=== PATIENT | male | born 1950 | race Caucasian/White ===

== ENCOUNTER 2018-05-31 20:08 | Observation (INO) | payer MEDICARE, OTHER ==
[~2018-05-31] VITALS: Ht 177.8 cm; Wt 83.9 kg
--- NOTE | ~2018-05-31 | HEMODYNAMI ---
PATIENT:ELVIA CHERRY MEDICAL RECORD: [id number] : 46 [id number] ADMISSION DATE: 05/31/18 Generatedon:06/01/201815:14 Patient name: ELVIA CHERRY Patient #: [id number] SSN: : 1950 Date of study: 06/01/2018 Page: Of Hemodynamic Procedure Report Patient Data Patient Demographics Procedure consent was obtained First Name: ELVIA Gender: Male Last Name: DILIP : 1950 Middle Initial: MARY KAY Age: 68 year(s) Patient #: [id number] Race: Unknown Additional ID: [id number] Contact details [address]: [address] [place] [address] [place] State: [place] City: [place] Zip code: [address] Past Medical History Allergies: No known allergies Admission Admission Data Admission Date: 05/31/2018 Admission Time: 23:13 Admit Source: Other Room #: D.2119 Weight (lbs.): 185.19 Weight (kg.): 84 Procedure Procedure Types Cath Procedure Diagnostic Procedure [facility] w/Coronaries Procedure Description Procedure Date Procedure Date: 06/01/2018 Procedure Start Time: 14:57 Procedure End Time: 15:09 Procedure Staff Name Function Yosef Boss MD Performing Physician Naina Hines RT Monitor Corey Sommers RT Scrub Naveen Montero RN Nurse Justino Gee RT Gas Attendant Procedure Data Cath Procedure Fluoroscopy Diagnostic fluoroscopy Total fluoroscopy Time: 1.8 time: 1.8 min min Diagnostic fluoroscopy Total fluoroscopy dose: 598 dose: 598 mGy mGy Contrast Material Contrast Material Type Amount (ml) Isovue 300 70 Entry Location Entry Primary Successful Side Size Upsize Upsize Entry Closure Succes sful Closure Location (Fr) 1 (Fr) 2 (Fr) Remarks Device Remarks Femoral Right 5 Fr artery Estimated blood loss: 5 ml Diagnostic catheters Device Type Used For End Catheter Placement MULTIPACK JL 4.0 5Fr Left Coronary catheter Angiography MULTIPACK 3DRC 5Fr Right Coronary catheter Angiography MULTIPACK Pigtail 5 Fr LV Angiography catheter Procedure Complications No complications Procedure Medications Medication Administration Route Dosage 0.9% NaCl I.V. 100 ml/hr Oxygen etCO2 Nasal cannula 2 l/min Heparin Flush Bag added to field 2 bags (1000units/500ml NS) Lidocaine 2% added to field 20 Versed I.V. 1 mg Fentanyl I.V. 50 mcg Hemodynamics Rest Heart Rate: 58 (bpm) Pressure Samples Time Site Value (mmHg) Purpose Heart Use Rate(bpm) 15:04 LV 168/-17,19 Snapshot 74 15:05 AO 154/69(107) Pullback 77 15:05 LV 166/16,18 Pullback 77 Gradients Valve Time Site 1 Site 2 Mean SEP/DFP Peak To Heart Use (mmHg) (sec/min) Peak Rate (mmHg) (bpm) Aortic 15:05 LV AO 10 23 12 77 166/16,18 154/69(107) Calculations Valve P-P Mean Valve Index Valve Source Name Gradient Area Flow (cm2) Aortic 12 10 12 10 Snapshots Pre Cath Intra NCS Post Cath Vital Signs Time Heart Resp SPO2 etCO2 NIBP (mmHg) Rhythm Pain Sedation Rate (ipm) (%) (mmHg) Status Level (bpm) 14:51:19 62 12 92 0 148/86(125) NSR 0 (11) 10(A) , No pain 14:55:58 66 13 90 154/87(132) NSR 0 (11) 10(A) , No pain 15:00:38 64 16 98 32.2 159/84(127) NSR 0 (11) 10(A) , No pain 15:05:21 77 23 98 39 162/83(133) NSR 0 (11) 10(A) , No pain Medications Time Medication Route Dose Verified Delivered Reason Notes Eff ectiveness by by 14:50:02 0.9% NaCl I.V. 100 Naveen Naveen Per ml/hr Winston Montero physician RN RN 14:50:10 Oxygen etCO2 2 Naveen Naveen Per Nasal l/min Winston nickerson cannula RN RN 14:50:21 Heparin Flush added 2 Naveen Naveen used for Bag to bags Winston Montero procedure (1000units/500ml field RN RN NS) 14:50:32 Lidocaine 2% added 20ml Naveen Naveen for local to vial Winston Montero anesthetic field RN RN 14:55:29 Versed I.V. 1 mg Naveen Hodge for Lorigan Lorigan sedation RN RN 14:55:38 Fentanyl I.V. 50 Naveen Hodge for mcg Lorigan Lorigan sedation RN diagnostics sales developer Log Time Note 14:20:08 Justino Gee RT(R) sent for patient. Start room use. 14:34:42 Informed consent obtained and on chart 14:34:45 Admit Source: Other 14:35:06 Diagnostic Cath status Elective 14:35:41 Time tracking: Regular hours (M-F 7:00 - 5:00) 14:35:44 Plan of Care:Hemodynamics will remain stable., Cardiac rhythm will remain stable., Comfort level will be maintained., Respiratory function will remain adequate., Patient/ family verbilizes understanding of procedure., Procedure tolerated without complication., Recovers from procedure without complications.. 14:35:49 Patient received from Med II to CCL 1 Alert and oriented. Tansferred to table in Supine position. 14:35:50 Warm blankets applied, and torres hugger turned on for patient comfort. 14:35:50 Correct patient and procedure confirmed by team. 14:35:51 ECG and BP/O2 sat monitors applied to patient. 14:36:13 Lab results completed and on chart. 14:44:56 Vital chart was started 14:44:57 Baseline sample Acquired. 14:45:00 Rhythm: sinus rhythm 14:45:54 H&P Date Dictated: 06/01/2018 Within 30 days and on chart., H&P Addendum completed by physician on day of procedure. (MUST COMPLETE FOR ALL OUTPATIENTS). 14:45:56 Pre-procedure instructions explained to patient. 14:45:56 Pre-op teaching completed and patient verbalized understanding. 14:45:58 Family in waiting room. 14:46:01 Patient NPO since Midnight. 14:46:03 Is the patient allergic to Iodine/contrast media? No. 14:46:04 Was the patient premedicated? No 14:46:08 Is patient on blood thinner?Yes 14:46:11 ACC The patient was administered the following blood thiners within the last 24 hours: ACCPlavix 14:47:35 Patient diabetic? Yes. 14:47:36 If diabetic: On Metformin? Yes 14:47:42 If on Metformin: Last Dose? 05/31/2018 14:47:45 Previous problem with sedation/anesthesia? No ? 14:47:47 Snore? Yes 14:47:48 Sleep apnea? Yes 14:47:49 Deviated septum? No 14:47:50 Opens mouth fully? Yes 14:47:50 Sticks out tongue? Yes 14:48:34 Airway obstruction? No ? 14:48:37 Dentures? No ? 14:48:41 Pre procedure: right dorsailis pedis pulse 2+ Normal; easily identifiable; not easily obliterated 14:48:44 Pre procedure: left dorsailis pedis pulse 2+ Normal; easily identifiable; not easily obliterated 14:48:48 Patient pain scale 0/10 ?. 14:48:58 IV patent on arrival in right wrist with 0.9% NaCl at [facility]. 14:49:04 Right groin area was prepped with chlora-prep and draped in sterile fashion 14:49:05 Alarms reviewed by R. N. 14:49:06 Sharps counted by scrub and verified by R.N. 14:49:09 Physician arrived 14:49:09 --------ALL STOP TIME OUT------ 14:49:09 Final Timeout: patient, procedure, and site verified with staff and physician. All members of the team are in agreement. 14:49:11 Right groin site verified by team. 14:49:15 Physical assessment completed. ASA score P 2 - A patient with mild systemic disease as per Yosef Boss MD. 14:49:19 Sedation plan: IV Moderate Sedation Medication:Versed, Fentanyl 14:49:25 Use device set Femoral Dx 14:49:26 ACIST Syringe (25079) opened to sterile field. 14:49:26 Bag Decanter (2002S) opened to sterile field. 14:49:27 Medline Cath Pack ([id number]) opened to sterile field. 14:49:27 DIAGNOSTIC WIRE .035 260cm J wire (087610) opened to sterile field. 14:49:29 ACIST Hand Control (58158) opened to sterile field. 14:49:29 ACIST Manifold (52201) opened to sterile field. 14:49:30 DIAGNOSTIC Multipack 5Fr catheter set ([id number]) opened to sterile field. 14:49:30 Tegaderm 4 x 4 (1626W) opened to sterile field. 14:49:36 SHEATH Prelude 5Fr 0.035 (RUI-4D-94-035) opened to sterile field. 14:50:02 0.9% NaCl 100 ml/hr I.V. was administered by Naveen Montero RN; Per physician; 14:50:10 Oxygen 2 l/min etCO2 Nasal cannula was administered by Naveen Montero RN; Per physician; 14:50:21 Heparin Flush Bag (1000units/500ml NS) 2 bags added to field was administered by Naveen Montero RN; used for procedure; 14:50:32 Lidocaine 2% 20ml vial added to field was administered by Naveen Montero RN; for local anesthetic; 14:55:29 Versed 1 mg I.V. was administered by Naveen Montero RN; for sedation; 14:55:38 Fentanyl 50 mcg I.V. was administered by Naveen Montero RN; for sedation; 14:56:50 Patient Weight : 185.19 lbs 14:57:40 Procedure started. 14:57:40 Full Disclosure recording started 14:57:44 Local anesthetic to right femoral artery with Lidocaine 2% by Yosef Boss MD.INITIAL ACCESS ONLY 14:57:55 A 5 Fr sheath was inserted into the Right Femoral artery 14:58:55 A MULTIPACK JL 4.0 5Fr catheter was advanced over the wire and used for Left Coronary Angiography. 15:00:02 LCA angiography performed. 15:00:05 Injector settings: Ml/sec: 3, Volume: 6, 15:01:34 Catheter removed. 15:01:49 A MULTIPACK 3DRC 5Fr catheter was advanced over the wire and used for Right Coronary Angiography. 15:02:23 RCA angiography performed. 15:02:27 Injector settings: Ml/sec: 3, Volume: 6, 15:02:46 Catheter removed. 15:02:53 A MULTIPACK Pigtail 5 Fr catheter was advanced over the wire and used for LV Angiography. 15:04:47 LV hemodynamics recorded. 15:04:48 LV gram done using LEYVA 15:04:54 Injector settings: Ml/sec: 5, Volume: 15, 15:05:07 EF : 50 % 15:05:37 EXOSEAL 5Fr (EX500) opened to sterile field. 15:05:53 sheath kinked; unable to deploy 5F exoseal; holding manual pressure 15:06:06 Procedure ended.(Physican Out) 15:06:31 Fluoroscopy time 01.80 minutes. 15:06:35 Fluoroscopy dose: 598 mGy 15:06:35 Flurop Dose total: 598 15:06:39 Contrast amount:Isovue 300 70ml. 15:06:41 Sharps counted by scrub and verified by R.N. 15:06:43 Insertion/operative site no bleeding no hematoma. 15:06:45 Post-op/insertion site Right Femoral artery dressed using a 4 x 4 and Tegaderm. 15:06:48 Post right femoral artery:stable 15:06:50 Post Procedure Pulses reassessed and unchanged 15:06:53 Post procedure rhythm: unchanged. 15:06:56 Estimated blood loss: 5 ml 15:06:58 Post procedure instruction explained to patient.Patient verbalizes understanding. 15:06:59 Patient needs reinforcement of post procedure teaching. 15:07:13 Procedure and supply charges have been captured, reviewed, submitted and are correct. 15:07:17 Procedure Complication : No complications 15:07:20 Vital chart was stopped 15:09:12 See physician's report for complete and final results. 15:09:17 Report given to [facility]. 15:09:19 Patient transfered to [facility] with Stretcher. 15:09:21 Procedure ended. 15:09:21 Full Disclosure recording stopped 15:09:30 End room use (Document Last) Device Usage Item Name Manufacture Quantity Catalog Number Hospital Part Current M inimal Lot# / Charge Number Stock Stock Serial# Code ACIST Syringe Acist 1 49714 569994 099246 309146 2 0 (62315) [employer] Bag Decanter Microtek 1 2001S 841446 90160 134830 5 () [employer] Medline Cath Cardinal 1 [id number] 883919 95828 342794 5 Endocrine Technology ([id number]) DIAGNOSTIC WIRE St Des 1 014097 867105 674073 474856 3 0 .035 260cm J wire (762318) ACIST Hand Acist 1 08450 758216 779203 638543 5 Control (18427) [employer] ACIST Manifold Acist 1 57804 477182 181015 686924 5 (79945) [employer] DIAGNOSTIC Cardinal 1 [id number] 034766 04864 009278 3 0 Multipack 5Fr Health catheter set (JL7237) Tegaderm 4 x 4 3M 1 1626W 651076 647448 405514 5 (1626W) SHEATH Prelude Merit 1 [id number]-[id number]-08-035 210299 136163 938313 5 5Fr 0.035 Medical (HOT-8M-35-035) MULTIPACK JL Cardinal 1 418196 5 4.0 5Fr Health catheter MULTIPACK 3DRC Cardinal 1 394746 5 5Fr catheter Health MULTIPACK Cardinal 1 979899 5 Pigtail 5 Fr Health catheter EXOSEAL 5Fr Cardinal 1 EX500 632711 890019 529604 1 0 (EX500) Health Signature Audit Point Baker Stage Time Signature Unsigned Intra-Procedure 06/01/2018 Naina Hines 3:14:02 PM RT(R) Signatures Monitor : Naina Hines RT Signature : Date : Time : [place] [id number] [place] [address]
--- NOTE | ~2018-05-31 | OP ---
PATIENT NAME: ELVIA CHERRY MEDICAL RECORD: [id number] :46 LOCATION:D.M2 D.2119 ADMISSION DATE:05/31/18 SURGEON: DOYLE CHRISTIAN MD DATE OF OPERATION: 06/01/2018 PROCEDURE: Left heart catheterization, selective coronary angiography, right femoral artery approach. CATHETERS: A 5-Malawian, 5/4 left and right Barb, 5/4 pig. The procedure was well tolerated. The patient was returned to watts, sheath removed. Adequate hemostasis was obtained. FINDINGS: Left ventriculography in 30-degree LEYVA view: Normal wall motion, normal systolic function. CORONARY ANATOMY: LEFT MAIN: Left main is free of disease. LAD: Free of disease in the diagonal system. CIRCUMFLEX: Free of disease in the marginal system. RIGHT CORONARY ARTERY: Somewhat of a codominant system, almost rudimentary right. Previously placed stent is widely patent with no evidence of edge dissection. TRANSINT:[id number] Voice Confirmation ID: [id number] DOCUMENT ID: [id number] DOYLE CHRISTIAN MD at 1630 CC: [id number] DICTATION DATE: 06/01/18 1512 GROUP MARKETING VP: 06/01/18 1535 DIS IN 06/01/18 [place] [id number] [place] [address]
[~2018-05-31 20:08] MED LIST: ASPIRIN81 MG PO; DEXILANT60 MG PO; GLUCOPHAGE1000 MG PO; GLUCOTROL 5 MG T5 MG PO; HYDROCODONE-APA1 TAB PO; PEPCID20 MG PO; PLAVIX75 MG PO; PRAVACHOL40 MG PO; PRINIVIL10 MG; PRINIVIL10 MG PO; PROVENTIL HFA6.7 GM INH; SYNTHROID100 MCG PO; ZOCOR40 MG PO
[2018-05-31 20:51] VITALS: BP 153/65
[2018-05-31 20:52] LABS: BASOPHILS 0.4 % (0-2); EOSINOPHILS 3.8 % (0-7); HEMATOCRIT 38.6 % (42.0-54.0); HEMOGLOBIN 13.5 g/dL (13.5-17.5); IMMATURE GRANULOCYTES 0.5 % (0-5); LYMPHOCYTES 18.4 % (15-50); MCH 30.9 pg (26.0-34.0); MCV 88.3 fL (80.0-100.0); MEAN PLATELET VOLUME 9.4 fL (7.4-10.4); NEUTROPHILS 67.9 % (40-80); PLATELET COUNT 147 10x3/uL (130-400); RBC 4.37 10x6/uL (4.20-6.10); RDW 12.9 % (11.5-14.5); WBC 5.5 10x3/uL (4.8-10.8)
[2018-05-31 21:04] LABS: INR 0.96 (0.85-1.17); PROTIME 12.4 SECONDS (11.6-15.0)
[2018-05-31 21:05] LABS: APTT 28.2 SECONDS (22.8-39.4)
[2018-05-31 21:06] LABS: D-DIMER-QUANTITATIVE 0.51 ug/mLFEU (0.20-0.54)
[2018-05-31 21:30] VITALS: BP 157/67
[2018-05-31 21:52] LABS: ALBUMIN 3.4 g/dL (3.4-5.0); ALKALINE PHOSPHATASE 68 U/L (46-116); ALT (SGPT) 21 U/L (10-68); BILIRUBIN - TOTAL 0.49 mg/dL (0.2-1.3); CARBON DIOXIDE 25.7 mmol/L (21.0-32.0); CHLORIDE - SERUM 106 mmol/L (98-107); CKMB 1.2 U/L (0.0-3.6); CREATINE KINASE 64 UL (21-232); CREATININE - SERUM 0.9 mg/dL (0.6-1.3); POTASSIUM - SERUM 3.7 mmol/L (3.5-5.1); PRO BNP 109 pg/mL (0-125); PROTEIN - SERUM 6.5 g/dL (6.4-8.2); SODIUM 140 mmol/L (136-145); TROPONIN-I < 0.017 ng/mL (0.000-0.060); UREA NITROGEN 14 mg/dL (7-18); eGFR NON AFRICAN AMERICAN 89 mL/min (90-120)
[2018-05-31 21:53] LABS: CALC OSMOLALITY 288 mosm/kg (275-300); GLUCOSE 254 mg/dL (74-106)
[2018-05-31 22:30] VITALS: BP 149/70
[2018-05-31 23:00] VITALS: BP 135/68
[2018-06-01] VITALS: BP 154/74
[2018-06-01] MEDS ORDERED: LANTUS INSULIN10 ML SC (01:49)
[2018-06-01] MEDS ORDERED: LIPITOR40 MG PO (01:50)
[2018-06-01 02:10] VITALS: BP 112/73
[2018-06-01 05:29] VITALS: BP 115/66
[2018-06-01 07:43] VITALS: BP 140/62
[2018-06-01 09:03] LABS: CALC OSMOLALITY 289 mosm/kg (275-300); CALCIUM 8.3 mg/dL (8.5-10.1); CARBON DIOXIDE 28.2 mmol/L (21.0-32.0); CHLORIDE - SERUM 106 mmol/L (98-107); CREATININE - SERUM 0.8 mg/dL (0.6-1.3); GLUCOSE 216 mg/dL (74-106); SODIUM 142 mmol/L (136-145); UREA NITROGEN 13 mg/dL (7-18); eGFR NON AFRICAN AMERICAN > 90 mL/min (90-120)
[2018-06-01 09:46] LABS: BASOPHILS 0.4 % (0-2); EOSINOPHILS 3.4 % (0-7); HEMATOCRIT 40.6 % (42.0-54.0); HEMOGLOBIN 13.9 g/dL (13.5-17.5); IMMATURE GRANULOCYTES 0.6 % (0-5); MCH 30.6 pg (26.0-34.0); MCHC 34.2 g/dL (31.0-37.0); MCV 89.4 fL (80.0-100.0); MEAN PLATELET VOLUME 9.7 fL (7.4-10.4); MONOCYTES 9.7 % (2-11); NEUTROPHILS 66.9 % (40-80); PLATELET COUNT 141 10x3/uL (130-400); RBC 4.54 10x6/uL (4.20-6.10); WBC 5.3 10x3/uL (4.8-10.8)
[2018-06-01 11:24] VITALS: BP 131/63
[2018-06-01 13:06] VITALS: Ht 177.8 cm; Wt 83.9 kg
== END 2018-06-01 17:55 | disposition home or self-care (01) ==
LOC: D.ER 20:08 → OBSVTIME 23:13 → D.EDHOLD 23:13 → D.M2 23:13
PROVIDERS: Family Medicine; Internal Medicine Cardiovascular Disease
DX: R07.9 Chest pain, unspecified (principal); I25.10 Atherosclerotic heart disease of native coronary artery without angina pectoris; Z95.5 Presence of coronary angioplasty implant and graft; I10 Essential (primary) hypertension; E78.5 Hyperlipidemia, unspecified; E11.9 Type 2 diabetes mellitus without complications

== ENCOUNTER 2018-08-28 18:04 | Emergency (ER) | payer MEDICARE, OTHER ==
[~2018-08-28] VITALS: Ht 177.8 cm; Wt 84.1 kg
[~2018-08-28 18:04] MED LIST changes: +LANTUS INSULIN10 ML SC; +LIPITOR40 MG PO
[2018-08-28 18:13] VITALS: BP 157/68; Ht 177.8 cm; Wt 84.1 kg
== END 2018-08-28 21:09 | disposition home or self-care (01) ==
LOC: D.ER 18:04
DX: S01.81XA Laceration without foreign body of other part of head, initial encounter (principal); W18.31XA Fall on same level due to stepping on an object, initial encounter; Y93.89 Activity, other specified; Y92.019 Unspecified place in single-family (private) house as the place of occurrence of the external cause; E11.9 Type 2 diabetes mellitus without complications; I25.10 Atherosclerotic heart disease of native coronary artery without angina pectoris